=== PATIENT | male | born 1950 | race Caucasian/White ===

== ENCOUNTER → 2019-10-26 07:48 | Outpatient (CLI) | payer MEDICARE, BC | END | disposition home or self-care (01) | LOC: D.RAD 07:48 | PROVIDERS: ATTEND Family Medicine | DX: R13.10 Dysphagia, unspecified (principal) ==

== ENCOUNTER 2020-05-29 14:24 | Emergency (ER) | payer MEDICARE, BC ==
[~2020-05-29] VITALS: Ht 182.9 cm; Wt 118.6 kg
[2020-05-29 14:50] VITALS: Ht 182.9 cm; Wt 118.6 kg
[2020-05-29] MEDS ORDERED: SYNTHROID137 MCG PO (14:53)
[2020-05-29] MEDS ORDERED: DESMOPRESSIN A0.1 MG PO (14:53)
[2020-05-29] MEDS ORDERED: LISINOPRIL20 MG PO (14:53)
[2020-05-29] MEDS ORDERED: CORTEF10 MG PO ×2 (14:54)
[2020-05-29] MEDS ORDERED: LIPITOR20 MG PO (14:54)
[2020-05-29 15:19] LABS: BASOPHILS 0.3 % (0-2); EOSINOPHILS 3.2 % (0-7); HEMATOCRIT 46.1 % (42.0-54.0); IMMATURE GRANULOCYTES 0.5 % (0-5); LYMPHOCYTES 25.5 % (15-50); MCH 31.4 pg (26.0-34.0); MCHC 34.7 g/dL (31.0-37.0); MCV 90.6 fL (80.0-100.0); MEAN PLATELET VOLUME 8.9 fL (7.4-10.4); MONOCYTES 8.5 % (2-11); PLATELET COUNT 114 10x3/uL (130-400); RBC 5.09 10x6/uL (4.20-6.10); RDW 14.4 % (11.5-14.5); WBC 6.6 10x3/uL (4.8-10.8)
[2020-05-29 15:31] LABS: APTT 34.7 SECONDS (22.8-39.4); INR 1.11 (0.85-1.17); PROTIME 14.3 SECONDS (11.6-15.0)
[2020-05-29 15:36] LABS: CALC OSMOLALITY 277 mosm/kg (275-300); CALCIUM 9.2 mg/dL (8.5-10.1); CARBON DIOXIDE 27.1 mmol/L (21.0-32.0); CHLORIDE - SERUM 104 mmol/L (98-107); CREATININE - SERUM 1.5 mg/dL (0.6-1.3); GLUCOSE 96 mg/dL (74-106); POTASSIUM - SERUM 4.5 mmol/L (3.5-5.1); SODIUM 138 mmol/L (136-145); UREA NITROGEN 19 mg/dL (7-18); eGFR NON AFRICAN AMERICAN 49 mL/min (90-120)
[2020-05-29 15:52] LABS: ALBUMIN 4.1 g/dL (3.4-5.0); ALKALINE PHOSPHATASE 62 U/L (30-120); ALT (SGPT) 87 U/L (10-68); BILIRUBIN - TOTAL 0.64 mg/dL (0.2-1.3); CKMB 2.6 U/L (0.0-3.6); CREATINE KINASE 146 UL (21-232); MAGNESIUM - SERUM 1.9 mg/dL (1.8-2.4); PROTEIN - SERUM 7.3 g/dL (6.4-8.2); TROPONIN-I < 0.017 ng/mL (0.000-0.060)
[2020-05-29 17:35] VITALS: BP 140/53
== END 2020-05-29 17:35 | disposition home or self-care (01) ==
LOC: D.ER 14:24
PROVIDERS: Family Medicine
DX: R00.1 Bradycardia, unspecified (principal); R00.8 Other abnormalities of heart beat; R68.83 Chills (without fever)